=== PATIENT | female | born 1985 | race Caucasian/White ===

== ENCOUNTER 2017-04-26 12:55 | Observation (INO) | payer SELFPAY ==
[2017-04-26 13:40] LABS: BILIRUBIN,URINE NEGATIVE (NEG); GLUCOSE,URINE 100 mg/dL (NEG); NITRITE,URINE NEGATIVE (NEG); PROTEIN,URINE NEGATIVE (NEG-TRACE)
[2017-04-26] MEDS ORDERED: fentaNYL PF VIAL 100 MCG/2 ML VIAL IV ONE (13:45)
[2017-04-26 13:47] LABS: BARBITURATES NEG (NEG); BENZODIAZEPINES NEG (NEG); CANNABINOIDS NEG (NEG); COCAINE NEG (NEG); METHADONE NEG (NEG); OPIATES NEG (NEG); PHENCYCLIDINE NEG (NEG)
[2017-04-26 14:16] LABS: BACTERIA,URINE MODERATE /HPF (0-FEW); RBC,URINE 0 /HPF (0-2)
--- NOTE | 2017-04-26 15:43 | RAD ---
AP portable chest radiograph 04/26/2017 Clinical History: Chest pain for a long time. No previous studies are available for comparison. The cardiac and mediastinal silhouettes are within normal limits in size and configuration. No acute pulmonary infiltrate is seen. No pleural effusion or pneumothorax is noted. The Osseous structures are grossly intact. Impression: No acute abnormality is seen.
--- NOTE | 2017-04-26 15:48 | RAD ---
EXAM: Obstructive ultrasound. HISTORY: Abdominal pain in . COMPARISON: None. FINDINGS: Sonographic evaluation of the uterus and maternal pelvis was performed transabdominally. There is a single fetus in breech presentation. heart rate is 125 bpm. Estimated gestational age based on measurements is 33 weeks 2 days. Estimated weight is 2152 g. Individual measurements are commensurate. The placenta is fundal. Amniotic fluid index is 15.4 cm. The cervix is closed and measures 4.9 cm. The maternal adnexa are not visualized bowel correlate given positioning. IMPRESSION: 1. Single fetus in breech presentation. Estimated gestational age 33 weeks 2 days. heart rate 125 bpm.
[2017-04-26] MEDS: hydrOXYzine PAMOATE 25 MG CAPSULE PO SCH (17:54)
[2017-04-26] MEDS ORDERED: NIFEdipine 10 MG CAPSULE PO SCH (18:00)
[2017-04-26] MEDS: IV RINGERS,LACTATED 1000ML 1,000 ML IV SCH ×2 (18:01→22:01)
[2017-04-26] MEDS ORDERED: ZOLPIDEM 5 MG TABLET. PO PRN (19:00)
[2017-04-26] MEDS ORDERED: CALCIUM CARBONATE 500 MG TAB.CHEW PO PRN (20:15)
[2017-04-26] MEDS ORDERED: chlorproMAZINE 25 MG TABLET PO PRN (20:15)
[2017-04-27] MEDS: hydrOXYzine PAMOATE 25 MG CAPSULE PO SCH ×2 (00:05→05:50)
[2017-04-27] MEDS: IV RINGERS,LACTATED 1000ML 1,000 ML IV SCH (05:50)
[2017-04-27 05:53] LABS: HEMATOCRIT 28.8 % (36.0-47.0); HEMOGLOBIN 9.9 g/dL (12.0-15.5); RED BLOOD COUNT 3.24 x10^6/uL (3.50-5.40); RED CELL DISTRIBUTION WIDTH 13.8 % (11.5-14.5)
[2017-04-27 06:22] LABS: ALBUMIN 2.4 g/dL (3.4-5.0); ALBUMIN/GLOBULIN RATIO 0.9 (1.0-1.7); CALCIUM 9.6 mg/dL (8.5-10.1); CREATININE 0.4 mg/dL (0.6-1.0); GFR 188.7; POTASSIUM 3.4 mmol/L (3.5-5.1); TOTAL BILIRUBIN 0.2 mg/dL (0.2-1.0); TOTAL PROTEIN 5.2 g/dL (6.4-8.2)
--- NOTE | 2017-04-27 06:24 | EKG ---
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
--- NOTE | 2017-04-27 09:26 | PDOC1 ---
OB - History Hx of Present Care: Good Care Ultrasounds: Normal mid trimester US Obstetrical Complications: None Medical Complications: Other (IBS) Past Family/Social History * Past Medical, Surgical, Family and Obstetric Histories reviewed from chart. Blood Type: O+ Rubella: Immune RPR/VDRL: Negative GBS Status: Unknown HBsAG: Negative OB - Chief Complaint & HPI Date of Admission: Date of Admission: Apr 26, 2017 at 12:55 Chief Complaint/History : 5 Para: 2 EDC: Jun 06, 2017 Reason for admission: observation Admission Nurse Assessment Rev: Yes Problems: OB - Admission Exam Physical Exam Vitals: VS - Last 72 Hours, by Label Date Time Temp Pulse Resp B/P (MAP) Pulse Ox O2 Delivery O2 Flow Rate FiO2 04/26/17 13:44 22 HEENT: Normal, Nasal Mucosa Normal, Oropharynx Normal, Moist Membranes, Fontanelles Normal Heart: Regular Rate Lungs: Clear, Equal Abdomen: Gravid Extremities: Normal Pulses, No tenderness or swelling Reflexes: Normal Cervical Dilatation: None Effacement: 0% Station: Ballotable Membranes: Intact Contractions on Admission: < 5 Minutes Apart Intensity: Moderate Assessment/Plan Assessment/Plan 34/1 IUP CTX ABD pain CORIN PETTIT MD Apr 27, 2017 09:26
--- NOTE | 2017-04-27 09:27 | PDOC3 ---
OB DISCHARGE SUMMARY DATE OF ADMISSION: 04/26/17 DATE OF DISCHARGE: 04/27/17 REASON FOR ADMISSION: Other (PTC) PROCEDURES: Ultrasound PROCEDURES: None OPERATIONS: None DISCHARGE DIAGNOSIS: False Labor Undelivered DISCHARGE INFORMATION: Activity, Diet HOSPITAL COURSE unremarkable CONDITION AT DISCHARGE Stable CORIN PETTIT MD Apr 27, 2017 09:27
[2017-04-27] MEDS ORDERED: HYDR50CA PO (09:32)
== END 2017-04-27 10:00 | disposition home or self-care (01) ==
LOC: 3 SO LND 12:55 → OBSVTOIN 12:55 → INTOOBSV 12:55
PROVIDERS: ADMIT Specialist; ATTEND Specialist
DX: O47.03 False labor before 37 completed weeks of gestation, third trimester (principal); Z3A.34 34 weeks gestation of pregnancy
CPT/HCPCS: 36415; 71010; 76805; 80053; 81001; 85027; 87086; 93005; 96361; 96374; G0378; G0379; G0481; J3010; Q0161; Q0177; J7120